=== PATIENT | female | born 1955 | race Caucasian/White ===

== ENCOUNTER 2024-11-19 08:30 | Emergency (ER) | payer MEDICARE ==
[~2024-11-19] VITALS: Ht 162.6 cm; Wt 58.9 kg
[2024-11-19] VITALS (7 sets, daily range): BP systolic 110–133; BP diastolic 60–90
[2024-11-19 09:23] LABS: BASO% 0.2 % (0-3); EOS% 0.5 % (0-8); HEMATOCRIT 43.4 % (37.0-47.0); HEMOGLOBIN 13.9 g/dl (12.0-16.0); IMMATURE GRANULOCYTES 0.1 % (0.0-5.0); LYMPH% 52.2 % (15-41); MEAN CELL VOLUME 99.8 fL CALC (80.0-100.0); MONO% 6.9 % (2-13); NEUT# 3.29 thou/uL (2.00-7.15); NEUT% 40.1 % (42-76); RED BLOOD COUNT 4.35 mill/uL (4.20-5.60); RED CELL DISTRI WIDTH 13.5 % (11.5-15.5)
[2024-11-19 09:24] LABS: URINE BLOOD DIPSTICK Small (NEGATIVE); URINE COLOR Yellow; URINE GLUCOSE - DIPSTICK Negative (NEGATIVE); URINE KETONE Negative (NEGATIVE); URINE LEUK ESTERASE Negative (NEGATIVE); URINE NITRITE - DIPSTICK Negative (Negative); URINE PH 5.5 (4.5-8.0); URINE PROTEIN - DIPSTICK 30 mg/dL (NEG-TRACE); URINE SPECIFIC GRAVITY >=1.030; URINE UROBILINOGEN - DIPSTICK 0.2 E.U./dL (0.2)
[2024-11-19 09:26] LABS: URINE CALCIUM OXALATE CRYSTALS FEW lpf; URINE SQUAMOUS EPITHELIAL CELL RARE EPI/hpf (0-FEW); URINE WBC 0-2 WBC/hpf (0-5)
[2024-11-19] MEDS ORDERED: KETOROLAC TROMETHAMINE 15 MG/ML SDV IV ONE (09:35)
[2024-11-19 09:37] LABS: ALBUMIN 4.7 g/dL (3.2-5.0); BILIRUBIN, TOTAL 0.7 mg/dL (0.02-1.3); CREATININE 0.8 mg/dL (0.5-1.0); POTASSIUM 3.9 mmol/l (3.5-5.1); TOTAL PROTEIN 7.4 g/dL (6.3-8.2)
[2024-11-19] MEDS ORDERED: ONDANSETRON HCl 4 MG/2 ML SDV IV ONE (11:20)
[2024-11-19] MEDS ORDERED: MORPHINE SULFATE 4 MG/ML VIAL IV ONE (11:20)
[2024-11-19] MEDS ORDERED: TRAMADOL HYDROC50 M1 PO (11:39)
[2024-11-19] MEDS ORDERED: TAMSULOSIN0.4 MG PO (11:39)
[2024-11-19] MEDS ORDERED: ZOFRAN4 MG/TAB PO (11:39)
[2024-11-19] MEDS ORDERED: HYDROCO/APAP1 TA9 PO ×2 (11:39→11:44)
[2024-11-19] MEDS ORDERED: TORADOL PO (11:44)
== END 2024-11-19 12:11 | disposition home or self-care (01) ==
LOC: ED 08:30
PROVIDERS: Family Medicine
DX: N20.1 Calculus of ureter (principal); C91.10 Chronic lymphocytic leukemia of B-cell type not having achieved remission
CPT/HCPCS: J1885; J2405; Q9967